=== PATIENT | male | born 1945 | race Caucasian/White ===

== ENCOUNTER 2017-01-19 13:07 | Day surgery (SDC) | payer OTHER ==
[2017-01-03 12:36] VITALS: BMI 32.0
--- NOTE | 2017-01-03 13:09 | PAT Medication Instructions ---
Service Date Jan 03, 2017. Current Home Medication List Famotidine (Pepcid), 20 MG PO QAM Lisinopril (Zestril), 20 MG PO QAM Loratadine (Claritin), 10 MG PO QAM Multiple Vitamins W/ Minerals (Emergen-C Blue), 1 TAB PO QAM Naproxen (Aleve), 220 MG PO prn Medication Instructions For Your Scheduled Surgery - Check with surgeon for instructions: Naproxen (Aleve), 220 MG PO prn - Hold the following medications the morning of surgery: Multiple Vitamins W/ Minerals (Emergen-C Blue), 1 TAB PO QAM Famotidine (Pepcid), 20 MG PO QAM Lisinopril (Zestril), 20 MG PO QAM Loratadine (Claritin), 10 MG PO QAM If you have any questions please call us at [phone] or [phone] or [phone]
[2017-01-03 14:37] LABS: BASO % 0.6 %; BASO ABS # 0.05 K/uL (0-0.2); COMPLETE YES; EOS % 1.3 %; HEMATOCRIT 40.8 % (42-52); IG% 0.4 %; LYMPH % 24.2 %; LYMPH ABS # 1.92 K/uL (1.2-3.4); MEAN CELL VOLUME 87.6 fL (80-100); MEAN CORPUSCULAR HEMOGLOBIN 30.3 pg (25-34); MEAN CORPUSCULAR HGB CONC 34.6 g/dl (32-36); MONO % 7.4 %; NEUT % 66.1 %; PLATELET COUNT 266 K/uL (130-400); RED BLOOD COUNT 4.66 M/uL (4.7-6.1); WHITE BLOOD COUNT 7.93 K/uL (4.8-10.8)
[2017-01-03 14:42] LABS: URINE APPEARANCE CLEAR (CLEAR); URINE BILIRUBIN NEG (NEG); URINE COLOR YELLOW; URINE NITRITE NEG (NEG); URINE PH 6.5 (4.5-7.5); URINE SPECIFIC GRAVITY 1.018 (1.000-1.030); UROBILINOGEN NEG (NEG)
[2017-01-03 14:43] LABS: MANUAL MICROSCOPIC REQUIRED? NO; REVIEW REQ? NO
[2017-01-03 16:05] LABS: CALCIUM 9.3 mg/dl (8.5-10.1); CREATININE 1.5 mg/dl (0.60-1.40); POTASSIUM 4.6 mmol/L (3.5-5.1)
[~2017-01-19] VITALS: Ht 170.2 cm; Wt 95.2 kg
[~2017-01-19 13:07] MED LIST: CIPROFLOXACIN / D5W 400 MG IV SCH; CLR10 PO; FAMO20TA11 PO; LACTATED RINGER'S 1000ML 1,000 ML IV SCH; LISI-725 PO; MITOMYCIN FOR INJ 40 MG in SYRINGE 40 ML IR SCH; MULT1PAK PO; NAPR1TAB9 PO
[2017-01-19] MEDS ORDERED: ACET-1256 PO (13:22)
[2017-01-19 13:23] VITALS: BP 219/108; PULSE 105; TEMP 37; O2SAT 96; Ht 170.2 cm; Wt 95.2 kg
--- NOTE | 2017-01-19 15:51 | History & Physical Bridge Note ---
H&P Re-Evaluation Bridge Note: I have examined the patient, reviewed the History & Physical and in the interval since the performance of the History & Physical I have noted the following changes of clinical significance: No changes noted
[2017-01-19] MEDS ORDERED: ONDANSETRON INJ 2 MG/ML 2 ML VIAL IV PRN (16:00)
[2017-01-19] MEDS ORDERED: EpHEDrine SULFATE INJ 50 MG/ML AMP IV PRN (16:00)
[2017-01-19] MEDS ORDERED: ATROPINE SULFATE 0.1 MG/ML 5ML SYR IV PRN (16:00)
[2017-01-19] MEDS ORDERED: PHENYLEPHRINE 100MCG/ML 5ML SYR IV PRN (16:00)
[2017-01-19] MEDS ORDERED: MIDAZOLAM HCL 1 MG/ML 2ML VIAL ONE (16:02)
[2017-01-19] MEDS ORDERED: FENTANYL CITRATE INJ 50 MCG/1 ML 2 ML VIAL ONE (16:03)
[2017-01-19] MEDS ORDERED: MITOMYCIN FOR INJ 40 MG in SYRINGE 40 ML IR SCH (16:30)
[2017-01-19] MEDS ORDERED: DEXAMETHASONE SOD INJ 4 MG/ML VIAL ONE (16:42)
[2017-01-19] MEDS ORDERED: PROPOFOL IV EMULSION 10 MG/ML 20 ML VIAL IV ONE (16:42)
[2017-01-19] MEDS ORDERED: ONDANSETRON INJ 2 MG/ML 2 ML VIAL ONE (16:42)
[2017-01-19] MEDS ORDERED: LIDOCAINE HCL 2% 2 ML VIAL (20MG/ML) ONE (16:42)
[2017-01-19] MEDS ORDERED: OXYC-57 PO (17:00)
[2017-01-19] MEDS ORDERED: CIPR-255 PO (17:00)
--- NOTE | 2017-01-19 17:03 | Discharge Instructions ---
Discharge Instructions Date of Service Jan 19, 2017. Admission Reason for Admission: Bladder Cancer Discharge Discharge Diagnosis / Problem: Bladder cancer s/p biopsy, fulguration and Mitomycin C Discharge Goals Goal(s): Improve function, Improve disease control, Therapeutic intervention Activity Recommendations Activity Limitations: per Instructions/Follow-up section Lifting Limitations: no more than 25 pounds, gradually increase as tolerated Exercise/Sports Limitations: rest today, gradually increase as tolerated May Resume Sexual Activity: after two weeks Shower/Bathe: no limitations Driving or Machine Use: resume 1 day after discharge . Instructions / Follow-Up Instructions / Follow-Up Follow-up in office on Feb 01 at 11 AM Discharge Diet Recommended Diet: Regular Diet (good fluid intake) Procedures Procedures Performed: Cystoscopy, Cold Cup Bladder Biopsy, Roller Ball Fulgeration, Instillation of Mitomycin C Pending Studies Studies pending at discharge: yes List of pending studies: Pathology report Medical Emergencies . Who to Call and When: Medical Emergencies: If at any time you feel your situation is an emergency, please call 911 immediately. . Non-Emergent Contact Non-Emergency issues call your: Urologist Call Non-Emergent contact if: you have a fever, temperature is above 101, your pain is not controlled, your pain is worsening, your pain is unusual for you, your pain is concerning you, you have any medication questions . . "Provider Documentation" section prepared by Alban De. . VTE Core Measure Inpt VTE Proph given/why not?: SCD's [place] Drug Monitoring Program Search Results: patient reviewed within database, see additional documentation (last Rx by our service Feb 2016)
--- NOTE | 2017-01-19 17:06 | [facility] Post Operative Brief Note ---
Immediate Operative Summary Operative Date Jan 19, 2017. Pre-Operative Diagnosis Recurrent bladder cancer Post-Operative Diagnosis Recurrent bladder cancer Procedure(s) Performed Cystoscopy, Cold Cup Bladder Biopsy, Roller Ball Fulguration, Instillation of Mitomycin C Surgeon Dr. Alban De Sheet [place] Taper Surgeon(s) None Estimated Blood Loss 5 ml Findings Unchanged 1.5 cm L trigonal mass, erythematous mucosa on posterior bladder wall at site of prior TUR also biopsied Specimens A: Left trigon bladder tumor B: Posterior bladder lesion Drains 18 fr coude torres 10 cc H2O Anesthesia [facility] Complication(s) None Disposition Recovery Room / PACU
--- NOTE | 2017-01-19 17:10 | [facility] Operative Report ---
Operative Report Operative Date Jan 19, 2017. Pre-Operative Diagnosis Recurrent bladder cancer Post-Operative Diagnosis Recurrent bladder cancer Procedure(s) Performed Cystoscopy, Cold Cup Bladder Biopsy, Roller Ball Fulguration, Instillation of Mitomycin C Surgeon Dr. Alban De Machine Pecan Gatherer Surgeon(s) None Estimated Blood Loss 5 ml Findings Unchanged 1.5 cm left trigonal mass biopsied and fulgurated in its entirety, erythematous mucosa at the site of old posterior wall scar also biopsied. 40 mg Mitomycin instilled into bladder in 40 cc H2O. Specimens A: Left trigon bladder tumor B: Posterior bladder lesion Drains 18 fr coude torres 10 cc H2O Anesthesia [facility] Complication(s) None Disposition Recovery Room / PACU Indications 71-year-old male with a history of bladder cancer found to have a abnormal cystoscopy at the time of office evaluation in October 2016. [facility] and he is being brought to the operating room due to the size of the lesion for treatment including mitomycin C instillation. Please see H&P for further details. Intravenous ciprofloxacin provided for antibiotic coverage and SCDs used for DVT prophylaxis. Description of Procedure Patient was properly identified and brought into the operative suite after identification of appropriate consent of the chart. General anesthesia with laryngeal mask was initiated and patient was prepped and draped in standard fashion for this procedure. Full timeout procedure was followed. Patient's large scrotal hernia caused some limitation of dissection was able to be circumnavigated without excess difficulty. A 24 Icelandic resectoscope was introduced into the bladder under direct visualization using a visual obturator. A short but mildly obstructive prostate and elevated bladder neck was appreciated. Grade 1-2 trabeculation within the bladder was noted. Ureteral orifices were uninvolved by tumor. Bladder was surveyed in its entirety demonstrating findings quite similar to the patient's office cystoscopy with a 1.5 cm left posterior trigonal mass medial to the ureteral orifice. On the posterior bladder wall in a more elevated location identified and erythematous patch was also appreciated. These were the only abnormalities noted both on today's examination and on his prior office cystoscopy. Seen the small size of the tumor cold cup biopsy forceps were used to take food service sales representatives samples and then rollerball cautery was used to ablate any abnormal appearing area. No evidence of bladder perforation was appreciated. Similarly, the posterior erythematous patch was biopsied and sent as separate specimen. Again generous rollerball cautery was used. No other abnormalities within the bladder were appreciated. Bladder was drained and resectoscope was removed. 18 Icelandic coud catheter was placed into the bladder with 10 mL of sterile water in the balloon. 40 mg of mitomycin C and 40 mL of water were instilled into the bladder which was then clamped. This will be drained and trial void will be done prior to discharge home. Anesthesia was reversed and patient was transferred the recovery room in stable condition. I attest to the content of the Intraoperative Record and any orders documented therein. Any exceptions are noted below.
[2017-01-19] MEDS ORDERED: HydrALAZINE HCL 20 MG/ML VIAL ONE (17:15)
[2017-01-19] MEDS ORDERED: PHENAZOPYRIDINE HCL 200 MG TAB PO PRN (17:15)
[2017-01-19] MEDS ORDERED: OXYCODONE/ACETAMINOPHEN 5-325 TAB PO PRN ×2 (17:15)
[2017-01-19] MEDS ORDERED: NURSING VERBAL MED ORDER ONE (17:30)
[2017-01-19] MEDS ORDERED: LABETALOL HCL IV 5 MG/ML 20ML IV STA (17:37)
[2017-01-19] MEDS: HYDROmorphone INJ 2 MG/ML SYR/VIAL IV PRN ×2 (17:50→17:55)
--- NOTE | 2017-01-19 17:55 | Anesthesiology Progress Note ---
Anesthesia Post Op Note Date & Time Jan 19, 2017 at 17:54 Vital Signs Pain Intensity: 6 Vital Signs Past 12 Hours Date Time Temp Pulse Resp B/P (MAP) Pulse Ox O2 Delivery O2 Flow Rate FiO2 01/19/17 17:50 76 16 159/89 94 Room Air 01/19/17 17:40 75 16 172/96 96 Room Air 01/19/17 17:30 91 16 202/107 99 Nasal Cannula 3 01/19/17 17:20 81 16 193/116 99 Nasal Cannula 3 01/19/17 17:10 85 16 195/115 99 Nasal Cannula 3 01/19/17 17:01 36.5 86 16 199/108 98 Nasal Cannula 3 01/19/17 13:23 37 105 18 219/108 (145) 96 Room Air Notes Mental Status: alert / awake / arousable, participated in evaluation Pt Amnestic to Procedure: Yes Nausea / Vomiting: adequately controlled Pain: adequately controlled Airway Patency, RR, SpO2: stable & adequate BP & HR: stable & adequate Hydration State: stable & adequate Anesthetic Complications: no major complications apparent
[2017-01-19 18:12] VITALS: BP 150/88; PULSE 78; TEMP 37; O2SAT 94
--- NOTE | 2017-01-19 18:27 | Anesthesiology Progress Note ---
Anesthesia Post Op Note Date & Time Jan 19, 2017 at 18:27 Vital Signs Pain Intensity: 4 Vital Signs Past 12 Hours Date Time Temp Pulse Resp B/P (MAP) Pulse Ox O2 Delivery O2 Flow Rate FiO2 01/19/17 18:00 36.4 76 16 158/85 95 Room Air 01/19/17 17:50 76 16 159/89 94 Room Air 01/19/17 17:40 75 16 172/96 96 Room Air 01/19/17 17:30 91 16 202/107 99 Nasal Cannula 3 01/19/17 17:20 81 16 193/116 99 Nasal Cannula 3 01/19/17 17:10 85 16 195/115 99 Nasal Cannula 3 01/19/17 17:01 36.5 86 16 199/108 98 Nasal Cannula 3 01/19/17 13:23 37 105 18 219/108 (145) 96 Room Air Notes Mental Status: alert / awake / arousable, participated in evaluation Pt Amnestic to Procedure: Yes Nausea / Vomiting: adequately controlled Pain: adequately controlled Airway Patency, RR, SpO2: stable & adequate BP & HR: stable & adequate Hydration State: stable & adequate Anesthetic Complications: no major complications apparent
[2017-01-19 18:40] VITALS: BP 165/91; PULSE 82; TEMP 36.8; O2SAT 95
[2017-01-19 19:25] VITALS: BP 169/95; PULSE 86; TEMP 36.9; O2SAT 94
[2017-01-19 20:00] VITALS: BP 175/99; PULSE 93; TEMP 36.5; O2SAT 95
== END 2017-01-19 20:25 | disposition home or self-care (01) ==
LOC: C.ACU 13:07
PROVIDERS: ATTEND Urology
DX: C67.0 Malignant neoplasm of trigone of bladder (principal); N30.20 Other chronic cystitis without hematuria; K40.90 Unilateral inguinal hernia, without obstruction or gangrene, not specified as recurrent; I10 Essential (primary) hypertension; Z79.899 Other long term (current) drug therapy